=== PATIENT | male | born 1950 | race African-American/Black ===

== ENCOUNTER 2018-12-31 19:00 | Inpatient (IN) | payer OTHER, MEDICAID ==
[~2018-12-31] VITALS: Ht 185.4 cm; Wt 81.2 kg
[2018-12-31 20:23] LABS: Urine Bacteria NONE SEEN /hpf (None Seen); Urine Blood Negative /uL (Negative); Urine WBC 1 /hpf (0 - 3)
[2018-12-31 22:00] LABS: Alanine Aminotransferase 26 U/L (16-61); Albumin 3.2 g/dL (3.4-5.0); Anion Gap 6 (5-15); Aspartate Aminotransferase 11 U/L (15-37); BUN/Creatinine Ratio 31.5; Blood Urea Nitrogen 28 mg/dL (7-18); Calcium 9.4 mg/dL (8.5-10.1); Carbon Dioxide 32 mmol/L (21-32); Chloride 101 mmol/L (98-107); GFR African American 109 mL/min; GFR Non-African American 90 mL/min; Glucose 331 mg/dL (74-106); Potassium 4.4 mmol/L (3.5-5.1); Sodium 139 mmol/L (136-145)
[2018-12-31] MEDS ORDERED: HYDROcodone-ACET 10/325MG TAB PO ONE (22:00)
[2018-12-31 22:05] LABS: Alkaline Phosphatase 162 U/L (45-117); Bilirubin, Total 0.1 mg/dL (0.2-1.0); Total Protein 7.2 g/dL (6.4-8.2)
[2018-12-31 22:14] LABS: Hematocrit 41.2 % (41.0-53.0); Hemoglobin 13.5 g/dL (13.5-17.5); Mean Corpuscular Hemoglobin 29.6 pg (28.0-32.0); Mean Corpuscular Hgb Conc. 32.8 g/dL (32.0-36.0); Platelet Count (auto) 218 10^3/uL (140-450); Red Blood Cells 4.58 10^6/uL (4.5-5.90); Red Cell Distribution Width 15.4 % (11.8-14.3)
[2018-12-31 22:23] LABS: Band Neutrophils % (manual) 0; Basophils % (manual) 0 (0.0-2.0); Blast Cells 0; Eosinophils % (manual) 0 (0-7); Metamyelocytes % 0; Promyelocytes % 0; Reactive Lymphocytes 0
[2018-12-31 22:45] LABS: Lymphocytes % (manual) 8 (10.0-50.0); Monocytes % (manual) 3 (0-12); Myelocytes % 1
[2019-01-01] VITALS (8 sets, daily range): BP systolic 132–153; BP diastolic 70–83
[2019-01-01] MEDS ORDERED: DexAMETHasone SOD PHOS 10MG/1ML VIAL INJ IV ONE (02:15)
[2019-01-01] MEDS ORDERED: TEMAZEPAM 15 MG CAP PO PRN (02:30)
[2019-01-01] MEDS ORDERED: DEXTROSE (50%) 50ML SYRG IV PRN (02:30)
[2019-01-01] MEDS ORDERED: LORazepam 2MG/ML-1ML VIAL IV PRN (02:30)
[2019-01-01] MEDS ORDERED: ACETAMINOPHEN 325 MG TAB PO PRN (02:30)
[2019-01-01] MEDS ORDERED: ONDANSETRON HCL 4 MG/2 ML VIAL IV PRN (02:30)
--- NOTE | 2019-01-01 03:47 | NUR ---
MS admit from [facility] admitted to tele/MS Patient oriented to unit, room, bed, and unit policies regarding patient care and visiting hours. Patient is A&O X's 4 with no s/s of distress. Patient was able to ambulate from door to bed with standby assist. Patient showed some SOB at this time but it resolved when placed back onto 02 via NC. Seizure precautions are in place. Bed is in lowest/locked position with padded side rails up X's 2 and call light within reach of patient. Bed alarm is on. All questions and concerns addressed, patient verbalized understanding. Will continue to monitor for changes and round hourly/PRN.
--- NOTE | 2019-01-01 04:44 | NUR ---
MRSA SWAB MRSA Swab sent via bullet system
[2019-01-01] MEDS: ACCU-CHEK COMFORT CURVE STRIP VI SCH ×4 (05:56→23:50)
[2019-01-01] MEDS: InsuLIN REG 1unit/0.01ml Soln (100units/ml) SC SCH ×4 (05:56→23:50)
[2019-01-01] MEDS ORDERED: DexAMETHasone 4 MG TAB PO SCH (06:00)
[2019-01-01] MEDS ORDERED: DexAMETHasone SOD PHOS 10MG/1ML VIAL INJ IV SCH (06:00)
--- NOTE | 2019-01-01 06:19 | NUR ---
HOME MEDICATIONS Patient reports not knowing correct names/dosages of home medications. Will have bring in information
[2019-01-01] MEDS ORDERED: FAMOTIDINE 20 MG TAB PO SCH (10:00)
[2019-01-01] MEDS: NIFEdipine ER 30 MG TAB PO SCH (10:12)
[2019-01-01] MEDS: CARVEDILOL 3.125 MG TAB PO SCH ×2 (10:14→22:05)
[2019-01-01] MEDS: GEMFIBROZIL 600 MG TAB PO SCH ×2 (10:14→22:05)
[2019-01-01] MEDS: LEVETIRACETAM 500 MG TAB PO SCH ×2 (10:15→22:05)
[2019-01-01] MEDS: DexAMETHasone 4 MG TAB PO SCH ×2 (11:06→18:00)
--- NOTE | 2019-01-01 16:40 | NUR ---
ASSUMED CARE OF PATIENT Patient is awake and alert. No S/S of distress/SOB or pain. Instructed on POC and to call for assist PRN, will continue to monitor. Bed locked in the lowest position. Bed rails up x2. Call light in reach.
--- NOTE | 2019-01-01 16:56 | NUR ---
report given to Jany Carmichael to resume care of patient.
[2019-01-01] MEDS: HYDROcodone-ACET 5/325MG TAB PO PRN ×2 (17:42→22:10)
--- NOTE | 2019-01-01 19:00 | NUR ---
CLOSING NOTE Patient is awake and alert. No S/S of distress/SOB or pain. Bed locked in the lowest position. Bed rails up x2. Call light in reach. Endorsed care to night LILIANA Lawrence.
--- NOTE | 2019-01-01 19:10 | NUR ---
Opening Shift Note Received report from Arun FORD. Assumed care of patient, awake and alert. No S/S of distress/SOB or pain. Instructed on POC and to call for assist PRN. Fall precaution measures in place, will continue to monitor for changes Q1hr and PRN. Addendum: 01/02/19 at 0225 by Basilio Mir RN Report was received from Jany FORD.
[2019-01-01] MEDS: FAMOTIDINE 20 MG TAB PO SCH (22:05)
[2019-01-01] MEDS ORDERED: IPRATROPIUM BROM 0.5 MG/2.5ML INH SOL NEB PRN (22:45)
[2019-01-01] MEDS ORDERED: ALBUTEROL SULF 2.5 MG/0.5ML(0.5%) NEB SOLN NEB PRN (22:45)
[2019-01-02] MEDS: DexAMETHasone 4 MG TAB PO SCH ×2 (02:38→10:45)
[2019-01-02 04:50] VITALS: BP 138/71
[2019-01-02] MEDS: ACCU-CHEK COMFORT CURVE STRIP VI SCH ×2 (05:34→12:28)
[2019-01-02] MEDS: InsuLIN REG 1unit/0.01ml Soln (100units/ml) SC SCH ×2 (05:35→12:29)
[2019-01-02 05:45] VITALS: BP 114/52
[2019-01-02 06:52] LABS: Hematocrit 43.4 % (41.0-53.0); Hemoglobin 14.4 g/dL (13.5-17.5); Mean Corpuscular Hemoglobin 29.8 pg (28.0-32.0); Mean Corpuscular Hgb Conc. 33.2 g/dL (32.0-36.0); Mean Corpuscular Volume 89.9 fL (80.0-100.0); Platelet Count (auto) 215 10^3/uL (140-450); Red Blood Cells 4.83 10^6/uL (4.5-5.90); Red Cell Distribution Width 15.4 % (11.8-14.3); White Blood Cell 8.7 10^3/uL (4.4-10.8)
[2019-01-02 07:03] LABS: Basophils % (manual) 0 (0.0-2.0); Blast Cells 0; Eosinophils % (manual) 0 (0-7); Myelocytes % 0; Promyelocytes % 0; Reactive Lymphocytes 0
[2019-01-02 07:06] LABS: Calcium 9.1 mg/dL (8.5-10.1); Potassium 4.4 mmol/L (3.5-5.1)
[2019-01-02 08:44] LABS: Band Neutrophils % (manual) 2; Lymphocytes % (manual) 10 (10.0-50.0); Metamyelocytes % 1; Monocytes % (manual) 9 (0-12)
[2019-01-02 09:00] VITALS: BP 140/72
[2019-01-02] MEDS: LEVETIRACETAM 500 MG TAB PO SCH (10:43)
[2019-01-02] MEDS: CARVEDILOL 3.125 MG TAB PO SCH (10:43)
[2019-01-02] MEDS: FAMOTIDINE 20 MG TAB PO SCH (10:44)
[2019-01-02] MEDS: NIFEdipine ER 30 MG TAB PO SCH (10:44)
[2019-01-02] MEDS: GEMFIBROZIL 600 MG TAB PO SCH (10:44)
[2019-01-02 12:53] VITALS: BP 135/78
--- NOTE | 2019-01-02 13:39 | NUR ---
Respiratory note: PT ASSESSED FOR PRN MED NEB TX. POX 98% ON 3L NC, HR 86, RR 18. B/S ARE DIMINISHED THROUGHOUT POSTERIORLY. PT IS AWARE TO PRESS THE CALL AND TO ASK FOR A MED NEB TX IF HE FEELS ANY SOB.
--- NOTE | 2019-01-02 14:32 | NUR ---
Discharge note Discharge instructions given as ordered. Encourage to follow up with PMD as instructed. All questions and concerns addressed. Patient verbalized understanding. IV removed with catheter intact, pressure dressing applied. Patient taken to vehicle via wheelchair with all personal belongings, accompanied by staff and family member. No distress noted at time of departure.
== END 2019-01-02 14:32 | disposition home or self-care (01) | DRG 100 ==
LOC: EDBD 19:00 → ER 19:00 → OVERFLOW 01-01 02:37 → WEST WING 01-01 03:48
PROVIDERS: ADMIT Nurse Practitioner; ATTEND Family Medicine
DX: G40.409 Other generalized epilepsy and epileptic syndromes, not intractable, without status epilepticus (principal); G93.6 Cerebral edema; C79.31 Secondary malignant neoplasm of brain; I69.851 Hemiplegia and hemiparesis following other cerebrovascular disease affecting right dominant side; E11.65 Type 2 diabetes mellitus with hyperglycemia; I10 Essential (primary) hypertension; J44.9 Chronic obstructive pulmonary disease, unspecified; E11.51 Type 2 diabetes mellitus with diabetic peripheral angiopathy without gangrene; E78.00 Pure hypercholesterolemia, unspecified; F17.200 Nicotine dependence, unspecified, uncomplicated; T38.0X5A Adverse effect of glucocorticoids and synthetic analogues, initial encounter; H70.92 Unspecified mastoiditis, left ear; Z79.899 Other long term (current) drug therapy; Z85.118 Personal history of other malignant neoplasm of bronchus and lung; Z88.1 Allergy status to other antibiotic agents; Y92.009 Unspecified place in unspecified non-institutional (private) residence as the place of occurrence of the external cause; Z79.84 Long term (current) use of oral hypoglycemic drugs
CPT/HCPCS: 36415; 70450; 71045; 80048; 80053; 81001; 82542; 82962; 83880; 84484; 85007; 85027; 87081; 93005; 96374; 96375; G0378; J1100; J1815

== ENCOUNTER 2019-01-14 09:50 | Emergency (ER) | payer OTHER, MEDICAID ==
[~2019-01-14] VITALS: Ht 185.4 cm; Wt 86.2 kg
[~2019-01-14 09:50] MED LIST: CARV3.1240 PO; CHOL20007 OR; DIPH50TA9 PO; FLUT500M2 INH; GEMF600T7 PO; HYDR-531 PO; KEP500T PO; OMEP20TA PO; POTA20TA53 PO
[2019-01-14] MEDS ORDERED: LEVETIRACETAM 500 MG TAB PO ONE (12:00)
[2019-01-14 14:48] VITALS: BP 154/80
== END 2019-01-14 15:39 | disposition home or self-care (01) ==
LOC: EDBD 09:50 → ER 09:50
DX: R56.9 Unspecified convulsions (principal); E11.9 Type 2 diabetes mellitus without complications; I10 Essential (primary) hypertension
CPT/HCPCS: 70450

== ENCOUNTER 2019-01-15 15:15 | Emergency (ER) | payer OTHER, MEDICAID ==
[~2019-01-15] VITALS: Ht 185.4 cm; Wt 88.9 kg
[~2019-01-15 15:15] MED LIST changes: +POTA-220 PO; -POTA20TA53 PO
[2019-01-15 16:52] LABS: Albumin 2.9 g/dL (3.4-5.0); Anion Gap 5 (5-15); Blood Urea Nitrogen 22 mg/dL (7-18); Calcium 9.1 mg/dL (8.5-10.1); Carbon Dioxide 33 mmol/L (21-32); Chloride 99 mmol/L (98-107); Glucose 284 mg/dL (74-106); Magnesium 1.9 mg/dL (1.6-2.6); Potassium 4.1 mmol/L (3.5-5.1); Sodium 137 mmol/L (136-145)
[2019-01-15 16:58] LABS: Alanine Aminotransferase 22 U/L (16-61); Alkaline Phosphatase 89 U/L (45-117); Aspartate Aminotransferase 9 U/L (15-37); BUN/Creatinine Ratio 33.8; Bilirubin, Total 0.4 mg/dL (0.2-1.0); GFR African American 157 mL/min; GFR Non-African American 129 mL/min; Total Protein 7.3 g/dL (6.4-8.2)
[2019-01-15 16:59] LABS: Basophils # (auto) 0 uL; Basophils % (auto) 0.2 % (0.0-2.0); Eosinophils # (auto) 0 uL; Hematocrit 40.1 % (41.0-53.0); Hemoglobin 13.3 g/dL (13.5-17.5); Lymphocytes # (auto) 0.8 uL; Lymphocytes % (auto) 9.2 % (10.0-50.0); Mean Corpuscular Hemoglobin 29.6 pg (28.0-32.0); Mean Corpuscular Hgb Conc. 33.2 g/dL (32.0-36.0); Mean Corpuscular Volume 89.2 fL (80.0-100.0); Monocytes # (auto) 0.7 uL; Monocytes % (auto) 8.5 % (0.0-12.0); Neutrophils # (auto) 6.8 uL; Neutrophils % (auto) 82.1 % (37.0-80.0); Nucleated Red Blood Cells % 0.1 %; Platelet Count (auto) 224 10^3/uL (140-450); White Blood Cell 8.3 10^3/uL (4.4-10.8)
[2019-01-15 17:02] LABS: INR 0.93 (0.9-1.15); Partial Thromboplastin Time 23.6 sec (23.64-32.05)
[2019-01-15] MEDS ORDERED: IOHEXOL 350 MG/ML 100ML IJ ONE (18:40)
[2019-01-15 21:42] VITALS: BP 155/99
[2019-01-21] MEDS ORDERED: DEX4T PO (10:33)
[2019-01-25] MEDS ORDERED: ALBUAER3 IN (11:16)
[2019-01-25] MEDS ORDERED: ALBU2TAB4 PO (11:16)
[2019-01-25] MEDS ORDERED: DEXA2TAB8 PO (11:16)
[2019-01-25] MEDS ORDERED: INSUINJ18 SC (11:16)
[2019-01-25] MEDS ORDERED: IPRA0.03 (11:16)
== END 2019-01-15 21:27 | disposition home or self-care (01) ==
LOC: ER 15:18
DX: R94.31 Abnormal electrocardiogram [ECG] [EKG] (principal); R06.02 Shortness of breath; E11.9 Type 2 diabetes mellitus without complications; I10 Essential (primary) hypertension; E78.5 Hyperlipidemia, unspecified; C34.92 Malignant neoplasm of unspecified part of left bronchus or lung; C79.32 Secondary malignant neoplasm of cerebral meninges; Z85.118 Personal history of other malignant neoplasm of bronchus and lung; Z88.1 Allergy status to other antibiotic agents; Z88.6 Allergy status to analgesic agent
CPT/HCPCS: 36415; 71045; 71275; 80053; 83735; 83880; 84443; 84484; 85025; 85379; 85610; 85730; 93005; 99284; Q9967